=== PATIENT | male | born 1975 | race Caucasian/White ===

== ENCOUNTER 2020-09-21 15:39 | Emergency (ER) | payer SELFPAY ==
[2020-09-21] MEDS ORDERED: NALOXONE 0.4 MG/ML VIAL ONE (16:08)
[2020-09-21 16:35] LABS: Absolute Lymphocytes (CBC) 1.6 K/uL (0.7-4.9); Hematocrit 43.2 % (39.6-49.0); Lymphocytes % 23.3 % (15.3-44.8); MPV 7.2 fL (7.6-11.3); RBC Red Blood Cell Count 4.75 M/uL (4.33-5.43)
[2020-09-21 16:59] LABS: Protime INR 1.11
[2020-09-21 17:11] LABS: ALT/SGPT 36 U/L (12-78); AST/SGOT 25 U/L (15-37); Albumin 3.8 g/dL (3.4-5.0); Alkaline Phosphatase 83 U/L (45-117); BUN Blood Urea Nitrogen 19 mg/dL (7-18); Bicarbonate 28 mmol/L (21-32); Bilirubin Direct 0.1 mg/dL (0-0.2); Bilirubin Total 0.6 mg/dL (0.2-1.0); Glucose Level 181 mg/dL (74-106); Potassium 3.7 mmol/L (3.5-5.1); Protein, Total 7.6 g/dL (6.4-8.2); Sodium Level 141 mmol/L (136-145)
--- NOTE | 2020-09-21 21:14 | ER ---
Nurse's Notes [facility] Name: Edward Padilla Age: 45 yrs Sex: Male : 1975 Arrival Date: 09/21/2020 Time: 15:43 Bed 2 Private MD: Diagnosis: Opioid abuse Presentation: 09/21 15:43 Chief complaint: EMS states: FOUND UNRESPONSIVE BY KATE MAYER BY EMS. Coronavirus bp screen: At this time, the client does not indicate any symptoms associated with coronavirus-19. Ebola Screen: No symptoms or risks identified at this time. Initial Sepsis Screen: Does the patient meet any 2 criteria? No. Patient's initial sepsis screen is negative. Does the patient have a suspected source of infection? No. Patient's initial sepsis screen is negative. Risk Assessment: Do you want to hurt yourself or someone else? Patient reports no desire to harm self or others. Onset of symptoms is unknown. Care prior to arrival: Medication(s) given: NARCAN 2MG IV initiated. 20 GA, in the left forearm. 15:43 Method Of Arrival: EMS: [facility] bp 15:43 Acuity: ADWOA 2 bp Triage Assessment: 15:46 General: Appears distressed, uncomfortable, unkempt, Behavior is cooperative, bp appropriate for age, agitated, anxious. Pain: Complains of pain in ALL OVER. EENT: No deficits noted. Neuro: Level of Consciousness is awake, alert, obeys commands. Cardiovascular: No deficits noted. Respiratory: No deficits noted. GI: No signs and/or symptoms were reported involving the gastrointestinal system. : No signs and/or symptoms were reported regarding the genitourinary system. Derm: No deficits noted. Musculoskeletal: No deficits noted. Historical: - Allergies: 15:46 No Known Allergies; bp - Home Meds: 15:46 None [Active]; bp - PMHx: 15:46 None; bp - Immunization history:: Adult Immunizations unknown. - Social history:: Smoking status: Patient reports the use of cigarette tobacco products, unknown amount. Screenin:48 Abuse screen: Denies threats or abuse. Denies injuries from another. Nutritional bp screening: No deficits noted. Tuberculosis screening: No symptoms or risk factors identified. Fall Risk None identified. Assessment: 15:48 General: SEE TRIAGE NOTE. bp 16:27 Reassessment: Patient appears in no apparent distress at this time. Patient and/or bp family updated on plan of care and expected duration. Pain level reassessed. PT REMAINS SOMNOLENT BUT AROUSABLE. 17:38 Reassessment: Patient appears in no apparent distress at this time. No changes from bp previously documented assessment. Patient and/or family updated on plan of care and expected duration. Pain level reassessed. FAMILY AT B/S. 18:30 Reassessment: Patient appears in no apparent distress at this time. No changes from bp previously documented assessment. Patient and/or family updated on plan of care and expected duration. Pain level reassessed. PT TRANSITIONED TO ROOM AIR, TOLERATING WELL. 19:30 General: Appears in no apparent distress. Behavior is appropriate for age. Pain: Denies ea pain. Neuro: Level of Consciousness is awake, alert, obeys commands, Oriented to person, place, time, situation. Respiratory: Airway is patent Respiratory effort is even, unlabored, Respiratory pattern is regular, symmetrical. Derm: Skin is pink, warm \T\ dry. 21:23 Reassessment: Patient and/or family updated on plan of care and expected duration. Pain ea level reassessed. Patient is alert, oriented x 3, equal unlabored respirations, skin warm/dry/pink. Discharge instruction given to patient, verbalized the understanding of instruction. Pt left ED ambulatory accompanied by family, pt tolerating well Patient states feeling better. Vital Signs: 15:43 BP 129 / 82; Pulse 63; Resp 16; Temp 97.8; Pulse Ox 100% ; bp 16:28 BP 107 / 85; Pulse 94; Resp 11; Pulse Ox 100% ; bp 17:37 BP 117 / 85; Pulse 101; Resp 32; Pulse Ox 100% ; bp 18:30 BP 109 / 80; Pulse 92; Resp 20; Pulse Ox 95% ; bp 19:25 BP 107 / 75; Pulse 89; Resp 18; Pulse Ox 95% ; ea 21:15 BP 123 / 65; Pulse 80; Resp 16; Temp 97.7; Pulse Ox 96% on R/A; ea ED Course: 15:43 Patient arrived in ED. bp 15:43 [facility] 15:43 Salvatore Morris MD is Attending Physician. jaqui 15:45 Triage completed. bp 15:46 Arm band placed on. bp 15:48 Patient has correct armband on for positive identification. Bed in low position. Call bp light in reach. Side rails up X2. 15:49 Maintain EMS IV. Dressing intact. Good blood return noted. Site clean \T\ dry. Gauge \T\ bp site: 20G LEFT FA. 15:59 Salo Wyatt, RN is Primary Nurse. bp 21:20 No provider procedures requiring assistance completed. IV discontinued, intact, ea bleeding controlled, No redness/swelling at site. Pressure dressing applied. Administered Medications: 15:59 Drug: NARcan 2 mg Route: IVP; Site: left forearm; bp 16:10 Follow up: Response: Marked relief of symptoms bp 17:20 Drug: NS 0.9% 1000 ml Route: IV; Rate: 1 bolus; Site: left forearm; bp Outcome: 21:13 Discharge ordered by . jaqui 21:25 Discharged to home ambulatory, with family. ea 21:25 Condition: stable 21:25 Discharge instructions given to patient, family, Instructed on discharge instructions, follow up and referral plans. medication usage, Demonstrated understanding of instructions, follow-up care, medications, Prescriptions given X 1. 21:26 Patient left the ED. ea Signatures: Kashif Weathers PA PA jmm Antunez, Elena, CONNIE RN Salo Navas, RN RN bp
--- NOTE | 2020-09-21 21:14 | EDPHYS ---
Physician Documentation [facility] Name: Edward Padilla Age: 45 yrs Sex: Male : 1975 Arrival Date: 09/21/2020 Time: 15:43 Bed 2 Private MD: ED Physician Salvatore Morris HPI: 09/21 15:44 This 45 yrs old Male presents to ER via EMS with complaints of Overdose. jmm 15:44 The patient presents to the emergency department after a known overdose, that was jmm accidental. Context: Method: it is confirmed or suspected that the patient injected a substance, heroin, and was witnessed no one, Psychiatric history: it is unknown whether or not the patient has an antecedent psychiatric history. Associated signs and symptoms: Pertinent positives: decreased level of consciousness, loss of consciousness, shortness of breath. It is unknown whether or not the patient has had similar symptoms in the past. Historical: - Allergies: 15:46 No Known Allergies; bp - Home Meds: 15:46 None [Active]; bp - PMHx: 15:46 None; bp - Immunization history:: Adult Immunizations unknown. - Social history:: Smoking status: Patient reports the use of cigarette tobacco products, unknown amount. ROS: 15:44 Constitutional: Negative for fever, chills, and weight loss, Cardiovascular: Negative jm for chest pain, palpitations, and edema. 15:44 Respiratory: Positive for shortness of breath. 15:44 All other systems are negative. Exam: 15:44 Head/Face: atraumatic. Eyes: EOMI, no conjunctival erythema appreciated ENT: Moist jmm Mucus Membranes Neck: Trachea midline, Supple Chest/axilla: Normal chest wall appearance and motion. Cardiovascular: Regular rate and rhythm. No edema appreciated Respiratory: Normal respirations, no respiratory distress appreciated Abdomen/GI: Non distended, soft Back: Normal ROM Skin: General appearance color normal MS/ Extremity: Moves all extremities, no obvious deformities appreciated, no edema noted to the lower extremities Neuro: Awake and alert, normal gait Psych: Behavior is normal, Mood is normal, Patient is cooperative and pleasant 15:44 Constitutional: The patient appears in no acute distress, alert, awake. Vital Signs: 15:43 BP 129 / 82; Pulse 63; Resp 16; Temp 97.8; Pulse Ox 100% ; bp 16:28 BP 107 / 85; Pulse 94; Resp 11; Pulse Ox 100% ; bp 17:37 BP 117 / 85; Pulse 101; Resp 32; Pulse Ox 100% ; bp 18:30 BP 109 / 80; Pulse 92; Resp 20; Pulse Ox 95% ; bp 19:25 BP 107 / 75; Pulse 89; Resp 18; Pulse Ox 95% ; ea 21:15 BP 123 / 65; Pulse 80; Resp 16; Temp 97.7; Pulse Ox 96% on R/A; ea MDM: 15:46 Patient medically screened. [facility] 21:09 Data reviewed: vital signs, nurses notes. Counseling: I had a detailed discussion with [facility] the patient and/or guardian regarding: the historical points, exam findings, and any diagnostic results supporting the discharge/admit diagnosis, lab results, radiology results, to return to the emergency department if symptoms worsen or persist or if there are any questions or concerns that arise at home. ED course: Patient is alert and non toxic in appearance. Patient o2 wnl without supplemental o2. Patient is otherwise given strict return precautions. Patient understood and agrees with the plan of care. . 12 15:44 Order name: Acetaminophen; Complete Time: 17:13 [facility] 09/21 15:44 Order name: Basic Metabolic Panel; Complete Time: 17:13 [facility] 09/21 15:44 Order name: CBC with Diff; Complete Time: 17:03 [facility] 09/21 15:44 Order name: ETOH Level; Complete Time: 17:11 [facility] 09/21 15:44 Order name: Hepatic Function; Complete Time: 17:13 [facility] 09/21 15:44 Order name: PT-INR; Complete Time: 17:03 [facility] 09/21 15:44 Order name: Ptt, Activated; Complete Time: 17:03 [facility] 09/21 15:44 Order name: Salicylate; Complete Time: 17:03 [facility] 09/21 15:44 Order name: EKG; Complete Time: 15:45 [facility] 09/21 15:44 Order name: IV Saline Lock; Complete Time: 15:50 [facility] 09/21 15:44 Order name: Labs collected and sent; Complete Time: 16:10 [facility] Administered Medications: 15:59 Drug: NARcan 2 mg Route: IVP; Site: left forearm; bp 16:10 Follow up: Response: Marked relief of symptoms bp 17:20 Drug: NS 0.9% 1000 ml Route: IV; Rate: 1 bolus; Site: left forearm; bp Disposition: 09/22 06:33 Co-signature as Attending Physician, Salvatore Morris MD I agree with the assessment and kdr plan of care. Disposition: 09/21/20 21:13 Discharged to Home. Impression: Opioid abuse. - Condition is Stable. - Discharge Instructions: Opioid Overdose. - Prescriptions for Narcan 4 mg/actuation Nasal spray,non- aerosol - spray 0.1 milliliter by INTRANASAL route as needed alternating nostrils with each dose; 1 unit. - Medication Reconciliation Form, Thank You Letter, Antibiotic Education, Prescription Opioid Use form. - Follow up: Private Physician; When: 2 - 3 days; Reason: Recheck today's complaints, Continuance of care, Re-evaluation by your physician. Signatures: Dispatcher [employer] EDMS Salvatore Morris MD MD kdr Mickail, Joel, PA PA jmm Antunez, Elena, RN RN Salo Navas RN RN bp Corrections: (The following items were deleted from the chart) 09/21 21:26 21:13 09/21/2020 21:13 Discharged to Home. Impression: Opioid abuse. Condition is ea Stable. Forms are Medication Reconciliation Form, Thank You Letter, Antibiotic Education, Prescription Opioid Use. Follow up: Private Physician; When: 2 - 3 days; Reason: Recheck today's complaints, Continuance of care, Re-evaluation by your physician. jaqui
== END 2020-09-21 21:26 | disposition home or self-care (01) ==
LOC: ER 15:39
DX: T40.2X1A Poisoning by other opioids, accidental (unintentional), initial encounter (principal); F17.210 Nicotine dependence, cigarettes, uncomplicated
CPT/HCPCS: 36415; 80048; 80076; 80320; 80329; 85025; 85610; 85730; 96374; 99291; 99292; J2310